=== PATIENT | female | born 1950 | race Caucasian/White ===

== ENCOUNTER → 2016-11-19 | Outpatient (CLI) | payer OTHER ==
[~2016-11-19] MED LIST: ASPI-390 PO; CHLOTAB3 PO; CYM60 PO; IBUP-1428 PO; MELO7.5T5 PO; OXYC-57 PO; SKL800 PO; VENL37.593 PO
[2016-11-19 13:13] LABS: BASO % 0.2 %; BASO ABS # 0.01 K/uL (0-0.2); COMPLETE YES; EOS % 2.1 %; HEMATOCRIT 39.2 % (37-47); LYMPH ABS # 1.43 K/uL (1.2-3.4); MEAN CELL VOLUME 87.3 fL (80-100); MEAN CORPUSCULAR HEMOGLOBIN 30.1 pg (25-34); MEAN CORPUSCULAR HGB CONC 34.4 g/dl (32-36); MEAN PLATELET VOLUME 9.5 fL (7.4-10.4); MONO % 6.9 %; NEUT % 57.8 %; PLATELET COUNT 226 K/uL (130-400); RED BLOOD COUNT 4.49 M/uL (4.2-5.4); WHITE BLOOD COUNT 4.33 K/uL (4.8-10.8)
[2016-11-19 14:10] LABS: ALT/SGPT 26 U/L (12-78); BLOOD UREA NITROGEN 19 mg/dl (7-18); BUN/CREATININE RATIO 24.3 (10-20); CARBON DIOXIDE 25 mmol/L (21-32); CHLORIDE 107 mmol/L (98-107); CHOLESTEROL 195 mg/dl (0-200); CREATININE 0.76 mg/dl (0.60-1.20); GLUCOSE 86 mg/dl (70-99); POTASSIUM 3.6 mmol/L (3.5-5.1); SODIUM 142 mmol/L (136-145); TRIGLYCERIDES 76 mg/dl (0-150); VERY LOW DENSITY LIPOPROT CALC 15 mg/dl
[2016-11-19 14:20] LABS: ALB/GLOB RATIO 1.1 (0.9-2); ALKALINE PHOSPHATASE 70 U/L (45-117); AST/SGOT 16 U/L (15-37); CHOLESTEROL/HDL RATIO 3.4; HDL CHOLESTEROL 58 mg/dl; LDL CHOLESTEROL CALCULATED 122 mg/dl
[2016-11-19 14:30] LABS: CALCIUM 8.7 mg/dl (8.5-10.1)
== END | disposition home or self-care (01) ==
LOC: C.LABMFLN 09:40
PROVIDERS: ATTEND Internal Medicine
DX: E03.9 Hypothyroidism, unspecified (principal); E78.5 Hyperlipidemia, unspecified; E55.9 Vitamin D deficiency, unspecified; C55 Malignant neoplasm of uterus, part unspecified

== ENCOUNTER → 2017-02-18 | Outpatient (CLI) | payer OTHER ==
[~2017-02-18] MED LIST changes: -ASPI-390 PO; -IBUP-1428 PO; -MELO7.5T5 PO; -OXYC-57 PO; -SKL800 PO; -VENL37.593 PO
--- NOTE | 2017-02-18 14:13 | DIAGNOSTIC IMAGING REPORT ---
L-SPINE MIN 4 VIEWS ROUTINE, THORACIC SPINE 3 VIEWS ROUTINE HISTORY: 66 years-old Female M51.36 Disc degeneration, [id number] COMPARISON: CT abdomen and pelvis 12/05/2013 TECHNIQUE: 5 views of the lumbar spine and frontal and lateral views of the thoracic spine. FINDINGS: Thoracic spine: Multilevel endplate spurring and intervertebral disc space narrowing is seen throughout the thoracic spine. Alignment is satisfactory. The upper thoracic levels are suboptimally visualized secondary to overlying shoulder. Anterior fusion hardware involves the lower cervical spine. Lung tay appear clear. No acute rib fracture identified. Lumbar spine: Ribs at T12 are hypoplastic. There are 5 nonrib-bearing lumbar type vertebral segments. Vertebral body heights are well-maintained without compression deformity. There is unchanged 7 mm anterolisthesis L4 on L5, likely secondary to associated severe facet arthropathy. Intervertebral disc space narrowing is again seen at this level and also at L5-S1. There is severe facet arthropathy at L5-S1. The bones are mildly demineralized. Surgical clips are seen within the right mid abdomen. Right hip arthroplasty noted. Moderate degenerative changes involve the left femoral acetabular joint. IMPRESSION: 1. No acute fracture or dislocation identified involving the thoracic or lumbar spine. The upper thoracic segments are subvisualized secondary to patient positioning. 2. Multilevel endplate spurring and facet arthropathy throughout the spine. Intervertebral disc space narrowing is seen at multiple levels throughout the thoracic spine and also at L4-L5 and L5-S1. 3. Unchanged 8 mm anterolisthesis L4 on L5, likely secondary to underlying severe facet arthropathy. The above report was generated using voice recognition software. It may contain grammatical, syntax or spelling errors. Electronically signed by: Thaddeus Edouard M.D. 02/18/2017 2:11 PM Dictated Date/Time: 02/18/2017 2:07 PM
== END | disposition home or self-care (01) ==
LOC: C.RAD1850 13:46
PROVIDERS: ATTEND Internal Medicine
DX: M51.36 Other intervertebral disc degeneration, lumbar region (principal)

== ENCOUNTER → 2017-03-04 | Outpatient (CLI) | payer OTHER ==
--- NOTE | 2017-03-04 11:12 | DIAGNOSTIC IMAGING REPORT ---
LUMBAR SPINE MRI HISTORY: M54.16 Lumbar [id number] Disc degeneration, [id number] TECHNIQUE: Multiplanar multisequence MRI of the lumbar spine was performed without the use of contrast. COMPARISON: Lumbar spine 02/18/2017. FINDINGS: For the purpose of the report the L5-S1 disc space will be located on axial image 23 of 25. Stable 4 mm of anterolisthesis of L4 and L5. Diffuse disc desiccation throughout the lumbar spine. Mild disc space narrowing at L4-L5 and L5-S1, unchanged. The conus to right at the L1 level. Severe facet arthrosis at L4-L5 and L5-S1. Paraspinal soft tissues are unremarkable. No fractures within the lumbar spine. T12-L1: Small broad-based posterior disc bulge with a small focal central disc protrusion. No significant central canal or neural foraminal narrowing. L1-L2: Small broad-based posterior disc bulge without significant central canal or neural foraminal narrowing. L2-L3: Small broad-based posterior disc bulge without significant central canal or neural foraminal narrowing. L3-L4: Small broad-based posterior disc bulge asymmetric to the right without significant central canal narrowing. There is mild right neural foraminal narrowing. L4-L5: Small broad-based posterior disc bulge with ligamentum and facet hypertrophy resulting in minimal central canal narrowing. There is mild bilateral neural foraminal narrowing. L5-S1: Tiny right foraminal annular tear/disc protrusion resulting in mild right neural foraminal narrowing. No significant central canal or left-sided neural foraminal narrowing. IMPRESSION: 1. Tiny right foraminal annular tear/disc protrusion at L5-S1 resulting in mild right neural foraminal narrowing. 2. Minimal central canal narrowing at L4-L5 due to the disc bulge and facet hypertrophy. . 3. Stable grade I anterolisthesis of L4 and L5. 4. Additional degenerative changes as described above. Electronically signed by: Reinaldo Davila M.D. 03/04/2017 11:10 AM Dictated Date/Time: 03/04/2017 11:04 AM
== END | disposition home or self-care (01) ==
LOC: C.MRIBC 09:53
PROVIDERS: ATTEND Internal Medicine
DX: M51.16 Intervertebral disc disorders with radiculopathy, lumbar region (principal)

== ENCOUNTER → 2017-04-10 | Outpatient (CLI) | payer OTHER ==
--- NOTE | 2017-04-10 14:13 | MAMMOGRAPHY REPORT ---
BILATERAL DIGITAL SCREENING MAMMOGRAM TOMOSYNTHESIS WITH CAD: 04/10/2017 CLINICAL HISTORY: Asymptomatic. Personal history of breast cancer. TECHNIQUE: Breast tomosynthesis in addition to standard 2D mammography was performed. Current study was also evaluated with a Computer Aided Detection (CAD) system. COMPARISON: Comparison is made to exams dated: 04/08/2016 mammogram, 04/04/2015 mammogram, 03/03/2014 m ammogram, 12/18/2009 mammogram - [facility], 02/09/2008, and 10/03/2014 mammogram - [facility]. BREAST COMPOSITION: There are scattered areas of fibroglandular density in both breasts. FINDINGS: No suspicious masses, calcifications, or areas of architectural distortion are noted in ei ther breast. There has been no significant interval change compared to prior exams. There are stable post surgical changes in the right breast. Bilateral benign appearing calcifications are not signif icantly changed. A biopsy marker clip is again noted in the left 12:00 breast. IMPRESSION: ACR BI-RADS CATEGORY 2: BENIGN There is no mammographic evidence of malignancy. A 1 year screening mammogram is recommended. The pa tient will receive written notification of the results. Approximately 10% of breast cancers are not detected with mammography. A negative mammographic report should not delay biopsy if a clinically suggestive mass is present. Harriet De La Cruz M.D. ah/:04/10/2017 12:23:27 [employer] Driver: Salty GONZALEZ(Eva)(M), [facility] letter sent: Normal 1/2 BI-RADS Code: ACR BI-RADS Category 2: Benign
== END | disposition home or self-care (01) ==
LOC: C.MAMM 10:28
PROVIDERS: ATTEND Internal Medicine
DX: Z12.31 Encounter for screening mammogram for malignant neoplasm of breast (principal); Z85.3 Personal history of malignant neoplasm of breast

== ENCOUNTER → 2017-09-15 | Outpatient (CLI) | payer OTHER ==
[~2017-09-15] MED LIST changes: +ASPI-390 PO; -CHLOTAB3 PO; -CYM60 PO; +IBUP-1428 PO; +MELO7.5T5 PO; +OXYC-57 PO; +SKL800 PO; +VENL37.593 PO
--- NOTE | 2017-09-15 12:49 | DIAGNOSTIC IMAGING REPORT ---
L HIP UNILATERAL 2 VIEWS, R HIP UNILATERAL 2 VIEWS HISTORY: 67 years-old Female M25.559 Hip [id number] bilateral hip pain of unknown chronicity without reported trauma COMPARISON: Right hip radiographs 10/10/2015 TECHNIQUE: 2 views of the bilateral hips FINDINGS: RIGHT: Right hip arthroplasty in satisfactory alignment. Bones appear mildly demineralized. No evidence of hardware complication, acute fracture or dislocation. The imaged right hemipelvis appears intact. There are moderate degenerative changes of the pubic symphysis and right SI joint. Degenerative changes are also noted within the lower lumbar spine. Metallic surgical suture projects over the abdominal right lower quadrant. 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 No acute fracture or dislocation. Imaged soft tissues are unremarkable. IMPRESSION: 1. Right hip arthroplasty with satisfactory alignment. 2. Mild to moderate degenerative changes of the left femoral acetabular joint. 3. No acute fracture or dislocation. The above report was generated using voice recognition software. It may contain grammatical, syntax or spelling errors. Electronically signed by: Thaddeus Edouard M.D. 09/15/2017 12:48 PM Dictated Date/Time: 09/15/2017 12:44 PM
[2017-09-15 13:19] LABS: BASO % 0.4 %; BASO ABS # 0.02 K/uL (0-0.2); EOS ABS # 0.16 K/uL (0-0.5); HEMATOCRIT 41.6 % (37-47); HEMOGLOBIN 14.7 g/dL (12.0-16.0); IG# 0.01 K/uL (0.00-0.02); LYMPH % 25.6 %; LYMPH ABS # 1.35 K/uL (1.2-3.4); MEAN CELL VOLUME 88.1 fL (80-100); MEAN CORPUSCULAR HEMOGLOBIN 31.1 pg (25-34); MEAN CORPUSCULAR HGB CONC 35.3 g/dl (32-36); MEAN PLATELET VOLUME 9.5 fL (7.4-10.4); MONO % 7.2 %; MONO ABS # 0.38 K/uL (0.11-0.59); NEUT % 63.6 %; NEUT ABS # 3.36 K/uL (1.4-6.5); PLATELET COUNT 274 K/uL (130-400); RED CELL DISTRIBUTION WIDTH CV 13.4 % (11.5-14.5); RED CELL DISTRIBUTION WIDTH SD 43.3 fL (36.4-46.3); WHITE BLOOD COUNT 5.28 K/uL (4.8-10.8)
[2017-09-15 14:38] LABS: ALBUMIN 4.2 gm/dl (3.4-5.0); ALT/SGPT 26 U/L (12-78); BLOOD UREA NITROGEN 15 mg/dl (7-18); CARBON DIOXIDE 24 mmol/L (21-32); CHOLESTEROL 229 mg/dl (0-200); CREATININE 0.69 mg/dl (0.60-1.20); GLUCOSE 94 mg/dl (70-99); POTASSIUM 3.8 mmol/L (3.5-5.1); SODIUM 137 mmol/L (136-145)
[2017-09-15 14:47] LABS: ALKALINE PHOSPHATASE 82 U/L (45-117); AST/SGOT 18 U/L (15-37); LDL CHOLESTEROL CALCULATED 146 mg/dl
== END | disposition home or self-care (01) ==
LOC: C.RAD1850 12:13
PROVIDERS: ATTEND Internal Medicine
DX: M25.559 Pain in unspecified hip (principal); Z96.641 Presence of right artificial hip joint